=== PATIENT | male | born 1995 | race Hispanic/Latino ===

== ENCOUNTER 2020-07-25 13:14 | Emergency (ER) | payer OTHER, SELFPAY | END 2020-07-25 15:42 | disposition home or self-care (01) | LOC: CSHERS 13:14 | DX: S63.612A Unspecified sprain of right middle finger, initial encounter (principal); S90.32XA Contusion of left foot, initial encounter; S90.31XA Contusion of right foot, initial encounter; W22.01XA Walked into wall, initial encounter; X50.0XXA Overexertion from strenuous movement or load, initial encounter ==